=== PATIENT | female | born 1960 | race Caucasian/White ===

== ENCOUNTER → 2021-04-25 14:46 | Outpatient (CLI) | payer OTHER, SELFPAY ==
--- NOTE | ~2021-04-25 | XR_ITS ---
XR foot RT 2V 04/25/2021 15:16 Indication: Right foot pain after injury Procedure: 2 views right foot Comparison: No prior studies for comparison. Findings: There is possible nondisplaced fracture of the fifth proximal phalanx. No significant soft tissue abnormality. Lisfranc joint intact. No foreign bodies. Impression: 1: Possible nondisplaced fracture right fifth proximal phalanx. Recommend complete right foot series for further evaluation. Reviewed, dictated and finalized at location A. Impression: 1: Possible nondisplaced fracture right fifth proximal phalanx. Recommend compl ete right foot series for further evaluation.
== END ==
PROVIDERS: PCP Family Medicine; Visit Provider Physician Assistant
DX: S99.929A Unspecified injury of unspecified foot, initial encounter (principal); X58.XXXA Exposure to other specified factors, initial encounter
CPT/HCPCS: 73620

== ENCOUNTER → 2023-09-10 07:29 | Outpatient (CLI) | payer OTHER, SELFPAY ==
--- NOTE | ~2023-09-10 | US_ITS ---
EXAMINATION: US thyroid DATE: 09/10/2023 08:12 INDICATION: Thyroid nodule. TECHNIQUE: Multiple ultrasound images of the thyroid were obtained. COMPARISON: None. FINDINGS: The right thyroid lobe measures 5.9 x 2.3 x 2.0 cm. The left thyroid lobe measures 4.8 x 1.1 x 0.9 c m. In the right thyroid lobe, there is an 18 mm mixed solid and cystic, isoechoic, wider than tall n odule with smooth margin with macrocalcification (TI-RADS TR3). There are subcentimeter nodules in th e thyroid. IMPRESSION: 1. Multinodular goiter. Thyroid ultrasound is recommended in one year. Reviewed, dictated and finalized at location A.
== END ==
PROVIDERS: PCP Family Medicine; Visit Provider Nurse Practitioner
DX: E07.9 Disorder of thyroid, unspecified (principal); Z13.820 Encounter for screening for osteoporosis; E04.2 Nontoxic multinodular goiter
CPT/HCPCS: 76536

== ENCOUNTER → 2023-11-14 14:48 | Outpatient (CLI) | payer OTHER, SELFPAY ==
--- NOTE | ~2023-11-14 | MM_ITS ---
EXAMINATION: MM screening kathleen BI w marianna HISTORY: Screening TECHNIQUE: Craniocaudal and mediolateral oblique 3-D tomosynthesis images were obtained and synthetic 2-D images were generated. CAD analysis was submitted and interpreted. COMPARISON: Comparison to multiple prior studies sequentially, with oldest reviewed study dated 06/2014. BREAST PARENCHYMAL COMPOSITION: The breasts are extremely dense, which lowers the sensitivity of mamm ography FINDINGS: There is no evidence of suspicious mass, calcification, or architectural distortion to sugg est malignancy in either breast. There has been no suspicious interval change. IMPRESSION: 1. No mammographic evidence of malignancy. 2. Recommend routine screening mammography in one year. BI-RADS Category 1: Negative Reviewed, dictated and finalized at location A. 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
== END ==
PROVIDERS: PCP Nurse Practitioner; Visit Provider Nurse Practitioner
DX: Z12.31 Encounter for screening mammogram for malignant neoplasm of breast (principal)
CPT/HCPCS: 77063; 77067

== ENCOUNTER 2024-10-02 11:18 | Outpatient (CLI) | payer OTHER, SELFPAY ==
--- NOTE | ~2024-10-02 | US_ITS ---
EXAMINATION: US thyroid DATE: 10/02/2024 11:36 INDICATION: Disorder of thyroid, unspecified. TECHNIQUE: Multiple ultrasound images of the thyroid were obtained. COMPARISON: Thyroid ultrasound 09/10/2023 FINDINGS: The right thyroid lobe measures 4.6 x 2.0 x 1.7 cm. The left thyroid lobe measures 3.7 x 1.3 x 1.1 c m. In the left thyroid lobe, there is a 5 mm solid, very hypoechoic, wider than tall nodule with smo oth margin without echogenic foci (TI-RADS TR4). In the right thyroid lobe, there is a 6 mm mixed cys tic and solid, hypoechoic, wider than tall nodule with smooth margin without echogenic foci (TR3). In the right thyroid lobe, there is a 16 mm almost entirely cystic nodule (TR1). IMPRESSION: 1. Thyroid nodules, likely not clinically significant. No follow-up is needed. Reviewed, dictated and finalized at location B.
== END 2024-10-02 11:19 | disposition home or self-care (01) ==
PROVIDERS: PCP Nurse Practitioner; Visit Provider Nurse Practitioner
DX: E07.9 Disorder of thyroid, unspecified (principal); E04.2 Nontoxic multinodular goiter
CPT/HCPCS: 76536

== ENCOUNTER 2024-11-16 15:18 | Outpatient (CLI) | payer OTHER, SELFPAY ==
--- NOTE | ~2024-11-16 | MM_ITS ---
EXAMINATION: MM screening kathleen BI w marianna HISTORY: Screening TECHNIQUE: Craniocaudal and mediolateral oblique 3-D tomosynthesis images were obtained and synthetic 2-D images were generated. CAD analysis was submitted and interpreted. COMPARISON: Comparison to multiple prior studies sequentially, with oldest reviewed study dated 11/02. BREAST PARENCHYMAL COMPOSITION: Dense: The breasts are heterogeneously dense, which may obscure small masses FINDINGS: There are developing asymmetries in the superior aspect of the right breast on MLO view. Th ere are benign calcifications. The left breast is stable without evidence for malignancy. IMPRESSION: 1. Developing right breast asymmetries. 2. Additional mammographic views and possible breast ultrasound are recommended. BI-RADS Category 0: Incomplete: Needs additional imaging evaluation. Reviewed, dictated and finalized at location B. FIC CHECKER IMPRESSION: 1. Developing right breast asymmetries. 2. Additional mammographic views and possible breast ultrasound are recommended . BI-RADS Category 0: Incomplete: Needs additional imaging evaluation.
== END 2024-11-16 15:19 | disposition home or self-care (01) ==
LOC: MICIMG 15:19
PROVIDERS: PCP Nurse Practitioner; Visit Provider Nurse Practitioner
DX: Z12.31 Encounter for screening mammogram for malignant neoplasm of breast (principal); R92.8 Other abnormal and inconclusive findings on diagnostic imaging of breast
CPT/HCPCS: 77063; 77067

== ENCOUNTER 2025-01-29 00:54 | Day surgery (SDC) | payer OTHER, SELFPAY ==
[2025-01-19 15:10] VITALS: BMI 25.1
[2025-01-29 07:48] VITALS: BP 146/85; PULSE 82; RESP 18; TEMP 36.8; O2SAT 100
[2025-01-29] MEDS: LACTATED RINGERS 1,000 ML 150 ML IV CONT (07:54)
--- NOTE | 2025-01-29 08:13 | WPDANESEPPF ---
Anes - Initial Pre Proc Eval Procedure: Operation Date: 01/29/25 09:00 Proposed Procedures p Screening Colonoscopy - Chele Becerril MD Date/Time: 01/29/25 08:13 Surgeon: Chele Becerril MD Pre Op Diagnosis: screening malignant neoplasm of colon Patient Data Age: 64 Gender: F Height: 1.75 m Weight: 79.4 kg Last Vital Signs Temp 36.8 C 01/29/25 07:48 Pulse 82 01/29/25 07:48 Resp 18 01/29/25 07:48 BP 146/85 H 01/29/25 07:48 Pulse Ox 100 01/29/25 07:48 O2 Del Method Room Air 01/29/25 07:48 Allergies Allergy/AdvReac Type Severity Reaction Status Date / Time SEAFOOD Allergy Severe FACE Uncoded 01/29/25 07:47 TONGUE AND LIPS SWELL 02/18/09 CONFIRMED Home Medications ?Medication ?Instructions ?Recorded ?Confirmed ?Type cholecalciferol (vitamin D3) 25 25 mcg PO DAILY 05/10/21 01/29/25 History mcg (1,000 unit) capsule folic acid 1 mg tablet 1 mg PO DAILY 05/10/21 01/29/25 History lisinopril 20 mg tablet 20 mg PO DAILY #90 tabs 08/21/24 01/29/25 Rx Patient hx anesthesia problems: none Family hx anesthesia problems: none Results Review: All pre-operative results and documents have been reviewed as part of the pre-operative evaluation. 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 Family History Family History Mother Patient's mother is in good health Father Patient's father is in good health Social History Social History Smoking packs per day: 0.5 Smoking cigarettes per day: 10.0 Years smoked: 10 Smoking pack-years: 5.00 Smoking status: Never smoker Second hand tobacco smoke exposure: No Alcohol intake: current Drinks per week: 4 Substance use: never Substance use type: does not use Lack of Transportation: No Lack of Food: Never True Current Housing: I Have Housing Concerned About Future Housing: No Difficulty Paying Gas/Electric Bills: No Difficulty Paying for Meds: No Currently Unemployed: No Education: High School Diploma/GED Difficulty w/ Childcare or Family Care: No Living arrangements: with family Gender identity (if verbalized by the patient): Female Sexual Orientation (if Verbalized by the Patient): Straight or Heterosexual Spiritual care concerns: No Agree to blood products: Yes Anes - Eval Final PreProcedure Day of Procedure 01/29/25 08:13 Patient weight: overweight Heart: regular rate and rhythm Lungs: clear to auscultation Airway: Mallampati scale class II Neurological: alert and oriented Last oral intake: >/= 8 hours ASA classification: II Emergent: no Anesthetic plan: proceed Anesthesia type and monitoring: general GIVS and standard monitoring Results Review: All pre-operative results and documents have been reviewed as part of the pre-operative evaluation. Informed Consent: The patient's anesthetic plan and its attendant risks and benefits were discussed with the patient/family/POA. Questions were solicited and answers provided to the satisfaction of the patient/family/POA.
--- NOTE | 2025-01-29 08:43 | PM.IMHP ---
H&P: HPI History of Present Illness Date/Time: 01/29/25 08:43 Chief Complaint: Screening colonoscopy Narrative: This is the patient's second colonoscopy after 10 years. There are no GI symptoms and there is no family history of colorectal cancer. 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 Family History Family History Mother Patient's mother is in good health Father Patient's father is in good health Social History Social History Smoking packs per day: 0.5 Smoking cigarettes per day: 10.0 Years smoked: 10 Smoking pack-years: 5.00 Smoking status: Never smoker Second hand tobacco smoke exposure: No Alcohol intake: current Drinks per week: 4 Substance use: never Substance use type: does not use Lack of Transportation: No Lack of Food: Never True Current Housing: I Have Housing Concerned About Future Housing: No Difficulty Paying Gas/Electric Bills: No Difficulty Paying for Meds: No Currently Unemployed: No Education: High School Diploma/GED Difficulty w/ Childcare or Family Care: No Living arrangements: with family Gender identity (if verbalized by the patient): Female Sexual Orientation (if Verbalized by the Patient): Straight or Heterosexual Spiritual care concerns: No Agree to blood products: Yes Meds Home Medications and Allergies Home Medications ?Medication ?Instructions ?Recorded ?Confirmed ?Type cholecalciferol (vitamin D3) 25 25 mcg PO DAILY 05/10/21 01/29/25 History mcg (1,000 unit) capsule folic acid 1 mg tablet 1 mg PO DAILY 05/10/21 01/29/25 History lisinopril 20 mg tablet 20 mg PO DAILY #90 tabs 08/21/24 01/29/25 Rx Allergies Allergy/AdvReac Type Severity Reaction Status Date / Time SEAFOOD Allergy Severe FACE Uncoded 01/29/25 07:47 TONGUE AND LIPS SWELL 02/18/09 CONFIRMED Vital Signs Vital Signs - 24 hr 01/29/25 07:48 Temperature 98.2 F Pulse Rate 82 Respiratory Rate 18 Blood Pressure 146/85 H Pulse Oximetry 100 Oxygen Delivery Room Air Exam Const: General: cooperative and healthy appearing Resp: Effort & Inspection: normal respiratory effort and able to speak in complete sentences Auscultation: clear to auscultation bilaterally Cardio: Rate: regular rate Rhythm: regular rhythm GI: Inspection: normal to inspection GI Palp: No No hepatosplenomegaly present Auscultation: normal bowel sounds Rectal Exam: deferred Skin: General skin exam: normal color Psych: Appearance: grossly normal Mental Status: mental status grossly normal Assessment and Plan Assessment and plan (1) Encounter for screening colonoscopy: Code(s): Z12.11 - Encounter for screening for malignant neoplasm of colon Status: Acute Assessment and Plan: The patient is deemed a good candidate for the procedure. Consent signed. Will proceed.
[2025-01-29 09:06] VITALS: BP 144/80; PULSE 74; RESP 21; O2SAT 100
[2025-01-29 09:16] VITALS: BP 150/73; PULSE 73; RESP 18; O2SAT 100
== END 2025-01-29 09:38 | disposition home or self-care (01) ==
PROVIDERS: PCP Family Medicine; Referring Provider Nurse Practitioner; Visit Provider Internal Medicine Gastroenterology
PROC: 0DJD8ZZ Inspection of Lower Intestinal Tract, Via Natural or Artificial Opening Endoscopic (ICD-10-PCS; CPT 45378; principal; 2025-01-29 09:00)
DX: Z12.11 Encounter for screening for malignant neoplasm of colon (principal); K63.5 Polyp of colon; K64.8 Other hemorrhoids; K57.30 Diverticulosis of large intestine without perforation or abscess without bleeding; I10 Essential (primary) hypertension; E78.2 Mixed hyperlipidemia; Z98.890 Other specified postprocedural states
CPT/HCPCS: 45385; 88305; J2704; J7120

== ENCOUNTER 2025-05-10 09:16 | Outpatient (CLI) | payer OTHER, SELFPAY ==
--- NOTE | ~2025-05-10 | DEXA_ITS ---
Bone Density Report Name: BRETT ANSARI Age: 65 Sex: Female Ethnicity: White Date of : 1960 Indication: osteopenia; Referring Provider: Michel, Michelle Study: Bone densitometry was performed. Exam Date: May 10, 2025 Accession number: [id number] Bone Density: Region BMD T-score Z-score Classification AP Spine(L1-L4) 0.845 -1.8 0.0 Osteopenia Femoral Neck (Left) 0.690 -1.4 0.1 Osteopenia Total Hip (Left) 0.735 -1.7 -0.4 Osteopenia Femoral Neck (Right) 0.671 -1.6 0.0 Osteopenia Total Hip (Right) 0.711 -1.9 -0.6 Osteopenia Total Hip Mean 0.723 -1.8 -0.5 Osteopenia World Health Organization criteria for BMD impression classify patients as: Normal (T-score at or above -1.0), Osteopenia (T-score between -1.0 and -2.5), or Osteoporosis (T-score at or below -2.5). 10-year Fracture Risk(1): Major Osteoporotic Fracture 9.4% Hip Fracture 1.1% Reported Risk Factors: [place] (), Neck BMD=0.671, BMI=27.2 (1) FRAX(R) Version 3.08. Fracture probability calculated for an untreated patient. Fracture probability may be lower if the patient has received treatment. Previous Exams: -- Region Exam Age BMD T-score BMD Change BMD Change Date g/cm2 vs Baseline vs Previous -- AP Spine (L1-L4) 05/10/2025 65 0.845 -1.8 -13.2%* -7.9%* 10/02/2019 59 0.917 -1.2 -5.8%* 1.8% 08/22/2015 55 0.901 -1.3 -7.4%* -5.9%* 05/15/2013 53 0.957 -0.8 -1.6% -1.6% 11/21/2009 49 0.973 -0.7 Total Hip(Left) 05/10/2025 65 0.735 -1.7 -0.8% 0.6% 10/02/2019 59 0.731 -1.7 -1.3% 0.8% 08/22/2015 55 0.725 -1.8 -2.2% -0.4% 05/15/2013 53 0.727 -1.8 -1.8% -1.8% 11/21/2009 49 0.741 -1.6 Total Hip(Right) 05/10/2025 65 0.711 -1.9 -4.9%* -1.6% 10/02/2019 59 0.723 -1.8 -3.3% -3.1% 08/22/2015 55 0.746 -1.6 -0.2% 1.2% 05/15/2013 53 0.737 -1.7 -1.4% -1.4% 11/21/2009 49 0.747 -1.6 -- *Denotes significance at 95% confidence level, LSC for AP Spine = 0.022 g/cm2, LSC for Total Hip = 0.027 g/cm2 Clinical Information Provided by Patient: Has used the following medications: Vitamin D Patient maximum height was 69 Menopause Age: 52 Drinks caffeinated beverages Onset of menses at age 11 Number of children 0 Impression: The patient has low bone mass, based on the Right Total Hip T-score. The patient has an estimated ten-year risk of hip fracture of 1.1% and an estimated ten-year risk of major fracture of 9.4%, based on the WHO FRAX algorithm. The BMD for the AP Spine (L1-L4) decreased, changing by -7.9% since the last DXA exam. Discussion: BONE DENSITY IS LOW AT ONE OR MORE SKELETAL SITES. This patient's lowest T-score is low at one or more skeletal sites. It meets the World Health Organization's (WHO) criteria for ?low bone mass? (T-score between -1.0 and -2.5). The patient's 10-year risk of fracture as calculated by FRAX is less than the threshold where pharmacological therapy is recommended by the National Osteoporosis Foundation (NOF). However, all treatment decisions require clinical judgment and consideration of individual patient factors, including patient preferences, comorbidities, previous drug use, risk factors not captured in the FRAX model (e.g., frailty, falls, vitamin D deficiency, increased bone turnover, interval significant decline in bone density) and possible under or overestimation of fracture risk by FRAX. The patient should follow a healthful lifestyle (good nutrition with adequate calcium and vitamin D, and appropriate weight-bearing exercise). Follow-Up: Consider repeating this study in 2 years to reassess this patient's status, or sooner if there is some new clinical indication. Reported by: HARVEY on 05/10/2025 9:48:00 AM. Reviewed, dictated and finalized at location A.
== END 2025-05-10 09:17 | disposition home or self-care (01) ==
LOC: MICIMG 09:22
PROVIDERS: PCP Family Medicine; Visit Provider Nurse Practitioner
DX: M85.89 Other specified disorders of bone density and structure, multiple sites (principal); Z13.820 Encounter for screening for osteoporosis
CPT/HCPCS: 77080

== ENCOUNTER 2025-05-31 09:06 | Outpatient (CLI) | payer OTHER, SELFPAY ==
--- NOTE | ~2025-05-31 | MM_ITS ---
EXAMINATION: MM diagnostic kathleen RT w marianna HISTORY: Left breast asymmetry TECHNIQUE: 3-D tomosynthesis images of the left breast were performed and synthetic 2-D images were g enerated. CAD analysis was submitted and interpreted. COMPARISON: 11/16/2024, 11/14/2023 BREAST PARENCHYMAL COMPOSITION:Not Dense. There are scattered areas of fibroglandular density. FINDINGS: Parenchymal pattern of left breast is unchanged. No persistent mass lesion or distortion ar e identified, particularly in the upper left breast. No suspicious microcalcification. IMPRESSION: No mammographic evidence for malignancy. BI-RADS Category 1: Negative Reviewed, dictated and finalized at location .
== END 2025-05-31 09:07 | disposition home or self-care (01) ==
LOC: MICIMG 09:06
PROVIDERS: PCP Obstetrics & Gynecology Gynecology; Visit Provider Obstetrics & Gynecology Gynecology
DX: R92.8 Other abnormal and inconclusive findings on diagnostic imaging of breast (principal)
CPT/HCPCS: 77061; 77065; G0279

== ENCOUNTER 2025-11-18 15:37 | Outpatient (CLI) | payer OTHER, SELFPAY ==
--- NOTE | ~2025-11-18 | MM_ITS ---
EXAMINATION: MM screening kathleen BI w marianna HISTORY: Screening TECHNIQUE: Craniocaudal and mediolateral oblique 3-D tomosynthesis images were obtained and synthetic 2-D images were generated. CAD analysis was submitted and interpreted. COMPARISON: Comparison to multiple prior studies sequentially, with oldest reviewed study dated 11/24/2016. BREAST PARENCHYMAL COMPOSITION: Dense: The breasts are heterogeneously dense, which may obscure small masses FINDINGS: No significant change to benign-appearing bilateral breast calcifications. There is no evidence of suspicious mass, calcification, or architectural distortion to suggest malignancy in either breast. There has been no suspicious interval change. IMPRESSION: 1. No mammographic evidence of malignancy. 2. Recommend routine screening mammography in one year. BI-RADS Category 2: Benign finding(s). Reviewed, dictated and finalized at location O. NT EXPERIENCE MANAGER
== END 2025-11-18 15:38 | disposition home or self-care (01) ==
LOC: MICIMG 15:41
PROVIDERS: PCP Student in an Organized Health Care Education/Training Program; Visit Provider Obstetrics & Gynecology Gynecology
DX: Z12.31 Encounter for screening mammogram for malignant neoplasm of breast (principal)
CPT/HCPCS: 77063; 77067